=== PATIENT | male | born 1955 | race Caucasian/White ===

== ENCOUNTER → 2017-07-23 | Outpatient (CLI) | payer OTHER ==
[~2017-07-23] MED LIST: MEPE1TAB PO
[2017-07-23 12:50] LABS: ESTIMATED AVERAGE GLUCOSE 157 mg/dl; HA1C FLAG Normal (Normal)
[2017-07-23 13:02] LABS: ALT/SGPT 27 U/L (12-78); AST/SGOT 14 U/L (15-37); BLOOD UREA NITROGEN 9 mg/dl (7-18); CALCIUM 8.7 mg/dl (8.5-10.1); CARBON DIOXIDE 29 mmol/L (21-32); CHLORIDE 106 mmol/L (98-107); CHOLESTEROL 197 mg/dl (0-200); CREATININE 0.94 mg/dl (0.60-1.40); GLUCOSE 132 mg/dl (70-99); SODIUM 138 mmol/L (136-145)
[2017-07-23 13:13] LABS: ALKALINE PHOSPHATASE 69 U/L (45-117); CHOLESTEROL/HDL RATIO 5.1; HDL CHOLESTEROL 39 mg/dl; LDL CHOLESTEROL CALCULATED 147 mg/dl; PROSTATE SPECIFIC ANTIGEN 0.614 ng/ml (0.000-4.000); TRIGLYCERIDES 55 mg/dl (0-150); VERY LOW DENSITY LIPOPROT CALC 11 mg/dl
== END | disposition home or self-care (01) ==
LOC: C.LABBFT 10:18
PROVIDERS: ATTEND Physician Assistant Medical
DX: Z12.5 Encounter for screening for malignant neoplasm of prostate (principal); R73.01 Impaired fasting glucose; E78.00 Pure hypercholesterolemia, unspecified; I10 Essential (primary) hypertension

== ENCOUNTER → 2017-07-24 | Outpatient (CLI) | payer OTHER ==
--- NOTE | 2017-07-24 15:49 | DIAGNOSTIC IMAGING REPORT ---
SI JOINTS 3 OR MORE VIEWS CLINICAL HISTORY: Bilateral leg pain. COMPARISON STUDY: Pelvis radiograph May 15, 2009. FINDINGS: The sacroiliac joints are intact without evidence for ankylosis. There is no fracture or suspicious lesion. No erosions are identified. Mild osteoarthritis is noted of both sacroiliac joints. IMPRESSION: Mild osteoarthritis of the sacroiliac joints. Electronically signed by: Dannie Jean Baptiste M.D. 07/24/2017 3:47 PM Dictated Date/Time: 07/24/2017 3:45 PM
--- NOTE | 2017-07-24 15:50 | DIAGNOSTIC IMAGING REPORT ---
L-SPINE MIN 4 VIEWS ROUTINE CLINICAL HISTORY: Bilateral leg pain. COMPARISON: MRI of the lumbar spine May 15, 2009. FINDINGS: Alignment of the lumbar spine is anatomic. No fracture or suspicious lesion is present. There is mild disc space narrowing at L5-S1. There is mild endplate osteophytosis. Mild multilevel facet arthrosis is present. IMPRESSION: 1. No acute lumbar spine fracture or subluxation. 2. Mild multilevel disc space narrowing, osteophytosis and facet arthrosis of the lumbar spine. Electronically signed by: Dannie Jean Baptiste M.D. 07/24/2017 3:48 PM Dictated Date/Time: 07/24/2017 3:47 PM
--- NOTE | 2017-07-24 15:50 | DIAGNOSTIC IMAGING REPORT ---
PELVIS/BILATERAL HIP 2 VIEWS CLINICAL HISTORY: BILATERAL LEG PAIN COMPARISON STUDY: Pelvis 05/15/2009. FINDINGS: No fracture or dislocation within the pelvis or hips. Mild osteoarthritis within the bilateral hips demonstrated by cartilage space narrowing and small marginal osteophytes. The sacrum appears intact. Soft tissues are unremarkable. IMPRESSION: Mild bilateral hip osteoarthritis. No fractures. Electronically signed by: Nash Calhoun M.D. 07/24/2017 3:49 PM Dictated Date/Time: 07/24/2017 3:46 PM
== END | disposition home or self-care (01) ==
LOC: C.RAD 14:59
PROVIDERS: ATTEND Physician Assistant Medical
DX: M79.604 Pain in right leg (principal); M79.605 Pain in left leg

== ENCOUNTER → 2017-12-11 | Outpatient (CLI) | payer OTHER ==
[2017-12-11 12:50] LABS: ALBUMIN 3.9 gm/dl (3.4-5.0); ALT/SGPT 27 U/L (12-78); AST/SGOT 13 U/L (15-37); BLOOD UREA NITROGEN 11 mg/dl (7-18); CALCIUM 8.9 mg/dl (8.5-10.1); CARBON DIOXIDE 29 mmol/L (21-32); GLUCOSE 129 mg/dl (70-99); POTASSIUM 4.1 mmol/L (3.5-5.1); SODIUM 138 mmol/L (136-145)
[2017-12-11 12:53] LABS: ALKALINE PHOSPHATASE 63 U/L (45-117); CHOLESTEROL 183 mg/dl (0-200); LDL CHOLESTEROL CALCULATED 127 mg/dl; TOTAL PROTEIN 7.3 gm/dl (6.4-8.2)
[2017-12-11 13:03] LABS: HEMOGLOBIN A1C 6.7 % (4.5-5.6)
== END | disposition home or self-care (01) ==
LOC: C.LABBFT 07:31
PROVIDERS: ATTEND Physician Assistant Medical
DX: E78.00 Pure hypercholesterolemia, unspecified (principal); R73.01 Impaired fasting glucose

== ENCOUNTER → 2018-04-21 | Outpatient (CLI) | payer OTHER ==
[2018-04-21 13:59] LABS: HEMOGLOBIN A1C 6.6 % (4.5-5.6)
[2018-04-21 14:29] LABS: ALBUMIN 3.5 gm/dl (3.4-5.0); ALKALINE PHOSPHATASE 61 U/L (45-117); ALT/SGPT 24 U/L (12-78); AST/SGOT 14 U/L (15-37); BLOOD UREA NITROGEN 15 mg/dl (7-18); CALCIUM 8.8 mg/dl (8.5-10.1); CARBON DIOXIDE 27 mmol/L (21-32); CHOLESTEROL 174 mg/dl (0-200); GLUCOSE 140 mg/dl (70-99); LDL CHOLESTEROL CALCULATED 122 mg/dl; SODIUM 139 mmol/L (136-145); TOTAL PROTEIN 6.9 gm/dl (6.4-8.2)
== END | disposition home or self-care (01) ==
LOC: C.LABBFT 07:33
PROVIDERS: ATTEND Physician Assistant Medical
DX: E11.9 Type 2 diabetes mellitus without complications (principal); E78.5 Hyperlipidemia, unspecified